=== PATIENT | female | born 1935 | race Caucasian/White ===

== ENCOUNTER 2019-05-14 19:56 | Inpatient (IN) | payer MEDICARE, MEDICAID ==
[~2019-05-14] VITALS: Ht 154.9 cm; Wt 55.6 kg
[~2019-05-14 19:56] MED LIST: CARV3.122; FOLI1TAB16 PO; NEPHC PO; SEVE800T8 PO
[2019-05-14] MEDS ORDERED: CRAN1POW2 (20:20)
[2019-05-14] MEDS ORDERED: DOCU100C41 PO (20:20)
[2019-05-14] MEDS ORDERED: AMLO-94 PO (20:20)
[2019-05-14] MEDS ORDERED: ATR0.5NEB IH (20:20)
[2019-05-14] MEDS ORDERED: OMEP40CA13 PO (20:20)
[2019-05-14] MEDS ORDERED: HYDR-4070 PO (20:20)
[2019-05-14] MEDS ORDERED: LINA290C PO (20:20)
[2019-05-14] MEDS ORDERED: AMOX-102 (20:20)
[2019-05-14] MEDS ORDERED: CARV6.253 PO (20:20)
[2019-05-14] MEDS ORDERED: MINO2.5T19 PO (20:20)
[2019-05-14] MEDS ORDERED: ACET-2119 PO (20:20)
[2019-05-14] MEDS ORDERED: NITR0.4T51 SL (20:20)
[2019-05-14] MEDS ORDERED: HYDR-3965 PO (20:20)
[2019-05-14] MEDS ORDERED: labetalol 20mg/4ml (5mg/ml) syringe IV ONE (20:50)
[2019-05-14 20:52] LABS: CLARITY,URINE CLEAR (Clear); COLOR,URINE YELLOW (Yellow); GLUCOSE, URINE 100 mg/dl (Neg); KETONES,URINE NEGATIVE (Neg); LEUKOCYTE ESTERASE ,URINE NEGATIVE (Neg); NITRITES, URINE NEGATIVE (Neg); OCCULT BLOOD,URINE LARGE (Neg); PROTEIN,URINE >=300 mg/dl (Neg); UROBILINOGEN,URINE 0.2 E.U/dL (0.2-1.0)
[2019-05-14 20:53] LABS: UA COLLECTION TYPE STRAIGHT CATH
[2019-05-14] MEDS ORDERED: hyDRALAzine 10mg tablet PO ONE (20:55)
--- NOTE | 2019-05-14 20:57 | NUR ---
PT KORIN FERNANDEZ CALLED TO GIVE UPDATED CONTACT INFORMATION PHONE NUMBER HOME: [phone] CELL: [phone]
[2019-05-14 21:00] LABS: RBC,URINE 0-2 /HPF (0-2); SQUAMOUS EPITHELIAL CELL,UR FEW /LPF (FEW); WBC,URINE 0-4 /HPF (0-4)
[2019-05-14 21:03] LABS: BACTERIA,URINE 3+ /HPF (Neg); MUCUS STRANDS MODERATE /LPF (Neg)
[2019-05-14 21:19] LABS: BASOPHILS % (AUTO) 0.6 % (0-1); EOSINOPHILS # (AUTO) 0.2 X10'3 (0-0.9); EOSINOPHILS % (AUTO) 2.5 % (0-6); LYMPHOCYTES % (AUTO) 13.7 % (21-51); MEAN PLATELET VOLUME 9.1 FL (7.4-10.4); MONOCYTES # (AUTO) 0.6 X10'3 (0-0.9); MONOCYTES % (AUTO) 8.1 % (2-12); NEUTROPHILS # (AUTO) 5.3 X10'3 (1.8-7.7); NEUTROPHILS % (AUTO) 75.1 % (42-75); PLATELET COUNT 115 X10'3 (140-440)
--- NOTE | 2019-05-14 21:50 | NUR ---
given antihypertensive rx 50 min ago, bp now 197/106. pt denies any pain but reprots she is nauseaus.
--- NOTE | 2019-05-14 21:53 | NUR ---
DR BARNES UPDATED OF NAUSEA, HE WILL ORDER ZOFRAN.
[2019-05-14] MEDS ORDERED: ondansetron/PF 4mg/2ml inj IV ONE (21:55)
[2019-05-14 22:01] LABS: BLOOD UREA NITROGEN 19 MG/DL (7-18); GLUCOSE 77 MG/DL (70-104); TOTAL CARBON DIOXIDE 27.5 MMOL/L (24-32)
[2019-05-14 22:02] LABS: ALANINE AMINOTRANSFERASE 128 U/L (12-78); ALBUMIN 2.4 G/DL (3.4-5.0); ALBUMIN/GLOBULIN RATIO 0.6 (1.1-1.5); ASPARTATE AMINO TRANSFERASE 387 U/L (10-37); BILIRUBIN,TOTAL 1.7 MG/DL (0.1-1.0); BUN/CREATININE RATIO 5.9 (6.6-38.0); CALCIUM 9.1 MG/DL (8.5-10.1); TOTAL PROTEIN 6.6 G/DL (6.4-8.2); eGFR 14 ML/MIN
[2019-05-14 22:03] LABS: ALKALINE PHOSPHATASE 124 IU/L (46-116)
[2019-05-14 22:08] LABS: PARTIAL THROMBOPLASTIN TIME 30 SECONDS (22-32)
[2019-05-14 22:10] LABS: ANION GAP 8 (8-16)
[2019-05-14 22:14] LABS: HEMOGLOBIN 9.3 g/dl (12.0-16.0); MEAN CORPUSCULAR HGB CONC 32.8 g/dL (33.0-36.5); RED CELL DISTRIBUTION WIDTH 17.5 % (11.5-14.5)
[2019-05-14 22:15] LABS: HEMATOCRIT 28.2 % (35.0-45.0); MEAN CORPUSCULAR HEMOGLOBIN 30.6 PG (27.0-31.0); MEAN CORPUSCULAR VOLUME 93.2 FL (78-98); RED BLOOD COUNT 3.02 X10'6 (4.20-5.60)
[2019-05-14] MEDS ORDERED: LABETALOL IV PRN (23:45)
[2019-05-14] MEDS ORDERED: acetaminophen 325mg tablet PO PRN ×2 (23:50)
[2019-05-14] MEDS ORDERED: ipratropium/albuterol 3ml nebule NEB PRN (23:50)
[2019-05-14] MEDS ORDERED: ondansetron/PF 4mg/2ml inj IV PRN (23:50)
[2019-05-14] MEDS ORDERED: HYDROcodone/acetaminophen 5mg/325mg tablet PO PRN (23:50)
[2019-05-15] VITALS (15 sets, daily range): BP systolic 96–191; BP diastolic 37–95
[2019-05-15] MEDS ORDERED: minoxidil 2.5mg tablet PO ONE (00:05)
[2019-05-15] MEDS: hydrALAZINE 25 MG tablet PO SCH ×4 (00:17→23:55)
[2019-05-15] MEDS ORDERED: LOSA50TA3 PO (00:20)
[2019-05-15] MEDS ORDERED: CEPH-571 PO (00:20)
[2019-05-15] MEDS ORDERED: CARV25TA PO (00:20)
--- NOTE | 2019-05-15 00:20 | NUR ---
PT CONTINUES TO BE CONFUSED. REGISTRATION WAS IN TO SEE THE PATIENT, SHE DOESN'T KNOW HER PHONE NUMBER.
[2019-05-15] MEDS: labetalol inj. 200 MG in normal saline 250ml IV soln 210 ML IV SCH ×2 (01:10→04:21)
[2019-05-15] MEDS ORDERED: niCARDipine-NS 40mg/200ml IVPB 200 ML IV PRN (04:16)
[2019-05-15 04:40] LABS: BASOPHILS # (AUTO) 0.1 X10'3 (0-0.2); EOSINOPHILS # (AUTO) 0.1 X10'3 (0-0.9); EOSINOPHILS % (AUTO) 2.5 % (0-6); HEMATOCRIT 28.1 % (35.0-45.0); HEMOGLOBIN 9.9 g/dl (12.0-16.0); LYMPHOCYTES # (AUTO) 1.1 X10'3 (1.1-4.8); LYMPHOCYTES % (AUTO) 18.7 % (21-51); MEAN CORPUSCULAR HEMOGLOBIN 32.9 PG (27.0-31.0); MEAN CORPUSCULAR HGB CONC 35.4 g/dL (33.0-36.5); MEAN PLATELET VOLUME 9.4 FL (7.4-10.4); MONOCYTES # (AUTO) 0.7 X10'3 (0-0.9); MONOCYTES % (AUTO) 11.9 % (2-12); NEUTROPHILS # (AUTO) 3.9 X10'3 (1.8-7.7); NEUTROPHILS % (AUTO) 65.9 % (42-75); PLATELET COUNT 115 X10'3 (140-440); RED BLOOD COUNT 3.02 X10'6 (4.20-5.60); RED CELL DISTRIBUTION WIDTH 17.5 % (11.5-14.5); WHITE BLOOD COUNT 5.9 X10'3 (4.5-11.0)
[2019-05-15 05:03] LABS: ALBUMIN 2.6 G/DL (3.4-5.0); BILIRUBIN,TOTAL 2.1 MG/DL (0.1-1.0); BLOOD UREA NITROGEN 25 MG/DL (7-18); BUN/CREATININE RATIO 6.7 (6.6-38.0); CALCIUM 8.5 MG/DL (8.5-10.1); CREATININE 3.74 MG/DL (0.40-0.90); eGFR 12 ML/MIN
[2019-05-15 05:21] LABS: ALANINE AMINOTRANSFERASE 364 U/L (12-78); ALBUMIN/GLOBULIN RATIO 0.7 (1.1-1.5); ALKALINE PHOSPHATASE 159 IU/L (46-116); ANION GAP 18 (8-16); ASPARTATE AMINO TRANSFERASE 931 U/L (10-37); CHLORIDE 101 MMOL/L (99-107); GLUCOSE 141 MG/DL (70-104); PHOSPHORUS 3.1 MG/DL (2.3-4.5); POTASSIUM 3.5 MMOL/L (3.5-5.1); SODIUM 146 MMOL/L (135-145); TOTAL CARBON DIOXIDE 26.7 MMOL/L (24-32); TOTAL PROTEIN 6.5 G/DL (6.4-8.2)
[2019-05-15 05:23] LABS: SODIUM 140 MMOL/L (135-145)
[2019-05-15 05:24] LABS: CHLORIDE 105 MMOL/L (99-107); POTASSIUM 3.3 MMOL/L (3.5-5.1)
--- NOTE | 2019-05-15 06:16 | NUR ---
Problems reprioritized. Patient report given, questions answered & plan of care reviewed with Janey HERRERA.
--- NOTE | 2019-05-15 06:34 | NUR ---
Patient in room CICU 2013. I have received report from Elif HERRERA and had the opportunity to ask questions and assume patient care.
[2019-05-15] MEDS: carvedilol 6.25mg tablet PO SCH ×2 (08:00→21:50)
[2019-05-15] MEDS ORDERED: lisinopril 20mg tablet PO SCH (08:00)
[2019-05-15] MEDS ORDERED: minoxidil 2.5mg tablet PO SCH (08:00)
[2019-05-15] MEDS: sevelamer carbonate 800mg tablet PO SCH ×3 (08:34→21:51)
[2019-05-15] MEDS: pantoprazole 40mg Tablet.DR PO SCH (08:34)
[2019-05-15] MEDS: amLODIPine 5mg tablet PO SCH (08:35)
--- NOTE | 2019-05-15 09:09 | NUR ---
patient took all her medications this am with applesauce without any swallowing issues, while I was at the bedside talking with her she told me "I dont feel well" and she then stopped responding to questions while looking stra Addendum: 05/15/19 at 0913 by Janey Welch RN straight ahead, patient then went asytolic on the monitor but, was still breathing and i could feel a faint pulse on the left radial. I called for help and the crash cart and she then threw up all over the front of her gown and then regained a pulse on the monitor along with a stronger pulse on the right radial. Patient stated she felt better after throwing up and we believe she may have vageled down when trying to vomit. All BP meds were expelled when she vomited. MD aware of events and also came to the bedside. Patient currently off cardene drip since 700am and BP is currently 144/65
--- NOTE | 2019-05-15 09:13 | NUR ---
zofran given per md order for nausea
--- NOTE | 2019-05-15 09:15 | NUR ---
BP is 116/54 HR 55 off cardene drip
[2019-05-15] MEDS: losartan 25mg tablet PO SCH ×2 (10:07→21:49)
[2019-05-15] MEDS: vitamin B comp w/Vit. C tab 1 TAB TABLET PO SCH (10:08)
[2019-05-15] MEDS ORDERED: AMOX500C2 PO (11:37)
[2019-05-15] MEDS ORDERED: IPRA3AMP31 IH (11:37)
[2019-05-15] MEDS ORDERED: AMLO10TA13 PO (11:37)
--- NOTE | 2019-05-15 12:23 | NUR ---
Problems reprioritized. Patient report given, questions answered & plan of care reviewed with Magi HERRERA.
--- NOTE | 2019-05-15 12:45 | NUR ---
called the son to make him aware that this patient will be transferring to room 1680T
--- NOTE | 2019-05-15 12:55 | NUR ---
Patient arrived to the unit accompanied by ICU personnel, safely transferred to the [facility]. Vital signs obtained, telemetry monitoring continued, 2 RN skin check complete, patient belongings placed at the bedside including wheelchair, patient oriented to room and call light, and bed alarm engaged. Will continue to monitor.
--- NOTE | 2019-05-15 13:03 | NUR ---
patient transferred to room 3014B with all belongings
[2019-05-15] MEDS: ipratropium 0.5 MG/2.5ML nebule IH SCH ×2 (13:33→19:53)
--- NOTE | 2019-05-15 17:48 | NUR ---
Orientee documentation: I have reviewed and agree with all interventions, assessments performed and documented by Magi HERRERA. Orientee Medication Administration: For this medication-pass time frame, all medication were reviewed, dispensed, administered and documented per hospital policy by Magi HERRERA.
--- NOTE | 2019-05-15 18:15 | NUR ---
Patient in room PCU 3014. I have received report from SHARON Sow and had the opportunity to ask questions and assume patient care.
--- NOTE | 2019-05-15 18:29 | NUR ---
Problems reprioritized. Patient report given, questions answered & plan of care reviewed with Candy RN & Mela RN.
--- NOTE | 2019-05-15 18:30 | NUR ---
Patient in room PCU 3014. I have received report from SHARON Gross and SHARON Yañez and had the opportunity to ask questions and assume patient care.
[2019-05-15] MEDS ORDERED: losartan 25mg tablet PO SCH (20:00)
[2019-05-15] MEDS: docusate sod 100mg capsule PO SCH (21:50)
[2019-05-15] MEDS: cephalexin 500mg capsule PO SCH (21:50)
[2019-05-16] MEDS: ipratropium 0.5 MG/2.5ML nebule IH SCH ×3 (02:00→15:18)
[2019-05-16 03:00] VITALS: BP 110/44
--- NOTE | 2019-05-16 03:53 | NUR ---
Orienteer documentation: I have reviewed and agree with interventions, assessments performed and documented by SHARON Plaza. Orienteer Medication Administration: For this medication-pass time frame, medication were reviewed, dispensed, administered and documented per hospital policy by SHARON Plaza.
[2019-05-16 05:53] LABS: BASOPHILS # (AUTO) 0.1 X10'3 (0-0.2); BASOPHILS % (AUTO) 1.1 % (0-1); EOSINOPHILS # (AUTO) 0.4 X10'3 (0-0.9); EOSINOPHILS % (AUTO) 4.5 % (0-6); HEMATOCRIT 28.5 % (35.0-45.0); HEMOGLOBIN 9.8 g/dl (12.0-16.0); LYMPHOCYTES # (AUTO) 1.1 X10'3 (1.1-4.8); LYMPHOCYTES % (AUTO) 14.4 % (21-51); MEAN CORPUSCULAR HEMOGLOBIN 31.6 PG (27.0-31.0); MEAN CORPUSCULAR HGB CONC 34.4 g/dL (33.0-36.5); MEAN CORPUSCULAR VOLUME 91.7 FL (78-98); MEAN PLATELET VOLUME 9.9 FL (7.4-10.4); MONOCYTES # (AUTO) 0.9 X10'3 (0-0.9); MONOCYTES % (AUTO) 11.1 % (2-12); NEUTROPHILS # (AUTO) 5.4 X10'3 (1.8-7.7); NEUTROPHILS % (AUTO) 68.9 % (42-75); PLATELET COUNT 114 X10'3 (140-440); RED CELL DISTRIBUTION WIDTH 18.2 % (11.5-14.5); WHITE BLOOD COUNT 7.8 X10'3 (4.5-11.0)
[2019-05-16 06:00] VITALS: BP 100/48
--- NOTE | 2019-05-16 06:00 | NUR ---
Patient in room PCU 3014. I have received report from SHARON Alarcon and had the opportunity to ask questions and assume patient care.
--- NOTE | 2019-05-16 06:26 | NUR ---
Problems reprioritized. Patient report given, questions answered & plan of care reviewed with SHARON Cheng.
[2019-05-16 06:27] LABS: ALANINE AMINOTRANSFERASE 290 U/L (12-78); ALBUMIN 2.8 G/DL (3.4-5.0); ALBUMIN/GLOBULIN RATIO 0.8 (1.1-1.5); ALKALINE PHOSPHATASE 142 IU/L (46-116); BILIRUBIN,TOTAL 1.3 MG/DL (0.1-1.0); BLOOD UREA NITROGEN 45 MG/DL (7-18); BUN/CREATININE RATIO 8.6 (6.6-38.0); CALCIUM 9.9 MG/DL (8.5-10.1); CHLORIDE 106 MMOL/L (99-107); CREATININE 5.21 MG/DL (0.40-0.90); GLUCOSE 104 MG/DL (70-104); MAGNESIUM 2.4 MG/DL (1.5-2.4); TOTAL CARBON DIOXIDE 23.5 MMOL/L (24-32); TOTAL PROTEIN 6.1 G/DL (6.4-8.2); eGFR 8 ML/MIN
[2019-05-16 06:35] LABS: HEMOGLOBIN A1C 5.3 % (4.5-6.2)
[2019-05-16 06:42] LABS: ANION GAP 10 (8-16); SODIUM 139 MMOL/L (135-145)
[2019-05-16 07:04] LABS: POTASSIUM 3.9 MMOL/L (3.5-5.1)
[2019-05-16 07:05] LABS: ASPARTATE AMINO TRANSFERASE 633 U/L (10-37); PHOSPHORUS 3.6 MG/DL (2.3-4.5)
[2019-05-16] MEDS: cephalexin 500mg capsule PO SCH (07:40)
[2019-05-16] MEDS: docusate sod 100mg capsule PO SCH (07:40)
[2019-05-16] MEDS: carvedilol 6.25mg tablet PO SCH (07:40)
[2019-05-16] MEDS: pantoprazole 40mg Tablet.DR PO SCH (07:40)
[2019-05-16] MEDS: vitamin B comp w/Vit. C tab 1 TAB TABLET PO SCH (07:40)
[2019-05-16] MEDS ORDERED: heparin 1,000unit/ml 10ml vial 10 ML IV ONE (08:00)
[2019-05-16] MEDS: amLODIPine 5mg tablet PO SCH (08:00)
[2019-05-16] MEDS: hydrALAZINE 25 MG tablet PO SCH (08:00)
[2019-05-16] MEDS ORDERED: non-formulary drug (Omeprazole (Prilosec) 1 CAP) PO SCH (08:00)
[2019-05-16] MEDS: losartan 25mg tablet PO SCH (08:00)
[2019-05-16] MEDS ORDERED: normal saline 1000ml 250 ML IV PRN (08:00)
[2019-05-16] MEDS ORDERED: epoetin 20,000 units/ml inj IV ONE (08:00)
[2019-05-16] MEDS ORDERED: heparin 1,000 units/ml 10ml inj HE ONE ×2 (08:00)
[2019-05-16] MEDS: sevelamer carbonate 800mg tablet PO SCH ×2 (08:00→13:00)
[2019-05-16 11:00] VITALS: BP 110/59
[2019-05-16] MEDS ORDERED: LOSA25TA41 PO (13:51)
[2019-05-16] MEDS ORDERED: NOR5T PO (13:51)
[2019-05-16 15:00] VITALS: BP 140/55
--- NOTE | 2019-05-16 17:32 | NUR ---
Pt was discharged to Home. [employer] is transporting to home with one attendant. She was dressed in her clothes, all belongings were gathered and sent in her duffle bag. The discharge packet was put in bag for her son. Explained that she has 2 new rx to fill. Pt has dementia and unable to sign paper. Including hearing aids in blue tub.
--- NOTE | 2019-05-16 19:10 | NUR ---
called son Thomas to notify him of discharge and no answer
[2019-05-16] MEDS ORDERED: lactobacillus rhamnosus 10,000 MMU CELLS/CAPSULE PO SCH (20:00)
--- NOTE | 2019-05-17 14:39 | NUR ---
I WAS CALLED BY PT SON. HE WAS DEMANDING TO KNOW WHAT MEDICATIONS FOR BP "WE" GAVE HER YESTERDAY. HE YELLED THAT HIS MOTHERS SBP WAS 70 WHEN HE TOOK IT AFTER PT WAS DELIVERED HOME YESTERDAY. HE YELLED THAT HIS MOTHER WAS WEAK AND SLEEPING WITH LOW BP ALL DAY. HE DEMANDED TO KNOW WHY WE SENT HER HOME THAT WAY. I INFORMED HIM THAT HER PT RECORD STATED THAT HER SBP WAS 140 WHEN SHE LEFT. I INFORMED HM THAT THEY SHOULD TAKE HER MOM BACK TO THE ER . I STATED THAT I CLARIFIED THE NEW RX THIS EARLY AFTERNOON WITH THE PHARMACY .THAT THAT MEANT TO ME THAT SHE HASN'T RECEIVED HER NEW RX TODAY. HE YELLED THAT NO ONE TOLD HIM ABOUT ANY NEW PRESCRIPTIONS. AFTER HE HUNG UP ON ME , I ASKED THE D/C RN PREET ABOUT THAT. PREET STATED THAT SHE DID IN FACT TALK TO SON REGARDING THE NEW RT. THAT THAT IS WHY SHE CALLED THEM OVER TO [facility]. I ATTEMPTED TO CALL SON BACK AND THE NUMBER PROVIDED IN SBAR WAS OUT OF SERVICE.
== END 2019-05-16 17:19 | disposition home health service (06) | DRG 304 ==
LOC: ER 19:57 → CICU 2S 05-15 00:27 → CMPBEDREQ 05-15 00:32 → PCU 3S 05-15 12:55
PROVIDERS: ATTEND Internal Medicine Critical Care Medicine
PROC: 5A1D70Z Performance of Urinary Filtration, Intermittent, Less than 6 Hours Per Day (ICD-10-PCS; principal; 2019-05-16)
DX: I16.9 Hypertensive crisis, unspecified (principal); N18.6 End stage renal disease; I46.9 Cardiac arrest, cause unspecified; R17 Unspecified jaundice; N39.0 Urinary tract infection, site not specified; E11.22 Type 2 diabetes mellitus with diabetic chronic kidney disease; R00.1 Bradycardia, unspecified; I12.0 Hypertensive chronic kidney disease with stage 5 chronic kidney disease or end stage renal disease; K21.9 Gastro-esophageal reflux disease without esophagitis; Z83.3 Family history of diabetes mellitus; Z99.2 Dependence on renal dialysis; Z87.440 Personal history of urinary (tract) infections; Z88.8 Allergy status to other drugs, medicaments and biological substances; Z91.013 Allergy to seafood; Z82.49 Family history of ischemic heart disease and other diseases of the circulatory system; Z79.899 Other long term (current) drug therapy
CPT/HCPCS: 36415; 71045; 80053; 81001; 83036; 83605; 83735; 84100; 84484; 85025; 85610; 85730; 87040; 87081; 93005; 94640; 94760; 96374; 96375; 99285; G0257; G0378; J1644; J2405; J3490; J7050; Q4081

== ENCOUNTER 2019-09-08 12:16 | Emergency (ER) | payer MEDICARE, MEDICAID ==
[~2019-09-08] VITALS: Ht 157.5 cm; Wt 50.0 kg
[~2019-09-08 12:16] MED LIST changes: +AMOX-580 PO; +ATR0.5NEB IH; -CARV3.122; +CARV6.253 PO; -FOLI1TAB16 PO; +IPRA3AMP31 IH; +LOSA25TA41 PO; -NEPHC PO
[2019-09-08] MEDS ORDERED: normal saline 1000ml 1,000 ML IV ONE (12:37)
[2019-09-08 12:52] LABS: EOSINOPHILS % (AUTO) 0 % (0-6); HEMOGLOBIN 12.8 g/dl (12.0-16.0); RED BLOOD COUNT 4.06 X10'6 (4.20-5.60)
[2019-09-08 12:54] LABS: BASOPHILS # (AUTO) 0.1 X10'3 (0-0.2); BASOPHILS % (AUTO) 1.2 % (0-1); HEMATOCRIT 38.2 % (35.0-45.0); LYMPHOCYTES # (AUTO) 0.7 X10'3 (1.1-4.8); LYMPHOCYTES % (AUTO) 9.6 % (21-51); MEAN CORPUSCULAR HEMOGLOBIN 31.5 PG (27.0-31.0); MEAN CORPUSCULAR HGB CONC 33.5 g/dL (33.0-36.5); MEAN CORPUSCULAR VOLUME 94.1 FL (78-98); MEAN PLATELET VOLUME 10.8 FL (7.4-10.4); MONOCYTES # (AUTO) 0.3 X10'3 (0-0.9); MONOCYTES % (AUTO) 3.6 % (2-12); NEUTROPHILS # (AUTO) 6.1 X10'3 (1.8-7.7); NEUTROPHILS % (AUTO) 85.6 % (42-75); PLATELET COUNT 134 X10'3 (140-440); WHITE BLOOD COUNT 7.1 X10'3 (4.5-11.0)
[2019-09-08 13:10] LABS: PARTIAL THROMBOPLASTIN TIME 26 SECONDS (22-32)
[2019-09-08 13:16] LABS: ALANINE AMINOTRANSFERASE 13 U/L (12-78); ALBUMIN 3.7 G/DL (3.4-5.0); ALKALINE PHOSPHATASE 60 IU/L (46-116); ANION GAP 12 (8-16); ASPARTATE AMINO TRANSFERASE 14 U/L (10-37); BILIRUBIN,TOTAL 0.6 MG/DL (0.1-1.0); BLOOD UREA NITROGEN 17 MG/DL (7-18); BUN/CREATININE RATIO 4.3 (6.6-38.0); CALCIUM 9.9 MG/DL (8.5-10.1); CHLORIDE 101 MMOL/L (99-107); CREATININE 3.91 MG/DL (0.40-0.90); GLUCOSE 153 MG/DL (70-104); POTASSIUM 4.9 MMOL/L (3.5-5.1); SODIUM 142 MMOL/L (135-145); TOTAL CARBON DIOXIDE 28.6 MMOL/L (24-32); TOTAL PROTEIN 7.3 G/DL (6.4-8.2); eGFR 11 ML/MIN
[2019-09-08] MEDS ORDERED: metoclopramide 5 mg/ml inj IV ONE (13:20)
--- NOTE | 2019-09-08 14:25 | NUR ---
Patient's son called to check on patient. Son's home phone [phone], cell phone [phone]
--- NOTE | 2019-09-08 15:40 | NUR ---
REC'D CALL FROM DR ALFORD. PATIENT IN ER BED 8 WAS JUST DISCHARGED TO HOME YESTERDAY. REQUESTS SNF FOR PATIENT. PATIENT LIVES WITH SON, BAKARI. ATTEMPTED TO CONTACT BAKARI AT HOME PHONE AND WAS UNABLE TO LEAVE A VM. LEFT VM ON CELL PHONE ASKING FOR CALL BACK. PATIENT REFERRED TO ALL DURING PREVIOUS VISIT AND DECLINED BY [facility]. CALLED AND SPOKE WITH MARILIN AT [facility]. THEY DO NOT HAVE ANY NON ISO FEMALE BEDS THIS WEEKEND IN LTAC OR TCU. [facility] AWAITING REPLY AT THIS TIME.
--- NOTE | 2019-09-08 16:30 | NUR ---
Rec'd call from case management, able to place Pt. in SNF tomorrow, unable to place patient today.
--- NOTE | 2019-09-08 16:34 | NUR ---
SPOKE DAYNE MEYER FROM [facility] AND HE WILL NOT BE ABLE TO ACCEPT TODAY. HE WILL EVAL AND GET BACK TO TOMORROW.
--- NOTE | 2019-09-08 16:35 | NUR ---
PETRA FROM [facility] HAS ACCPETED BUT WILL ONLY BE ABLE TO ACCEPT TOMORROW. CALLED AND NOTIFIED DR ALFORD. CALLED AND NOTIFIED KAMERON HERRERA AND HE WILL NOTIFY ONCBETTY MANN. CALLED AND SPOKE WITH KORIN VILLEGAS AND HE IS IN AGREEMENT.
--- NOTE | 2019-09-08 16:37 | NUR ---
SPOKE WITH SONBAKARI AGAIN. PATIENT IS DCI PATIENT WITH 1545 ARRIVAL TIME AND 1600 CHAIR TIME ON M,W,F. [employer] TRANSPORTS PATIENT. WILL NOTIFY [facility]. PATIENT IS ALSO OPEN WITH [facility].
[2019-09-08] MEDS ORDERED: acetaminophen 325mg tablet PO PRN (16:40)
[2019-09-08] MEDS ORDERED: proCHLORperazine 10 MG/2 ml inj IV PRN (16:40)
--- NOTE | 2019-09-08 17:08 | NUR ---
Obtained current medication list from Pt.'s son
[2019-09-08] MEDS ORDERED: LOSA100T57 PO (17:18)
--- NOTE | 2019-09-08 18:45 | NUR ---
Pt moved from bed 8 in main ER to bed 24 in Overflow. Pt denies discomfort at this time. Telemetry maintained in overflow due to pt having a telemetry order. She has been transfered to a hospital bed and repositioned. Fresh linen has been given as well.
--- NOTE | 2019-09-08 19:16 | NUR ---
Pt consumed 4 sips of her soup. She states that she is not hungry and has no desire to eat. She is not sleeping on her left side with visible respirations. No sign of pain or distress noted. Pt is in direct line of sight of nursing station. Telemetry is applied.
[2019-09-08] MEDS: docusate sod 100mg capsule PO SCH (20:00)
[2019-09-08] MEDS: heparin, porcine 5000 units/ml vial SQ SCH (20:01)
--- NOTE | 2019-09-08 20:08 | NUR ---
Pt pulled up in bed and repositioned to her right side with pillows supporting posture and floating bony prominances.
--- NOTE | 2019-09-08 22:10 | NUR ---
Pt pulled up in bed, repositioned, and turned onto her left side. Bony prominances were padded with pillows and her heels were floated. Pt was clean of incontinence at this time. She is sleeping comfortably, no sign of distress or pain noted.
--- NOTE | 2019-09-09 00:11 | NUR ---
Pt produced incontinent medium soft bowel movement that was cleaned up. She was then repositioned in bed and turned onto her right side. She denies pain or discomfort.
--- NOTE | 2019-09-09 02:13 | NUR ---
Pt pulled up in bed and repositioned onto her left side. Bony prominances were padded with pillows. Pt does not show sign of pain or discomfort, she is in eye sight of the nursing station.
--- NOTE | 2019-09-09 04:10 | NUR ---
Pulled pt up in bed and repositioned her onto her right side. Bony prominances were elevated with pillows and her heels were floated. She took two sips of water at this time. Pt denies pain or discomfort.
[2019-09-09 04:45] LABS: BASOPHILS # (AUTO) 0.1 X10'3 (0-0.2); BASOPHILS % (AUTO) 1.3 % (0-1); EOSINOPHILS % (AUTO) 0.5 % (0-6); HEMOGLOBIN 12.1 g/dl (12.0-16.0); LYMPHOCYTES # (AUTO) 1.2 X10'3 (1.1-4.8); LYMPHOCYTES % (AUTO) 16.7 % (21-51); MEAN CORPUSCULAR HEMOGLOBIN 31.7 PG (27.0-31.0); MEAN CORPUSCULAR HGB CONC 33.6 g/dL (33.0-36.5); MEAN CORPUSCULAR VOLUME 94.3 FL (78-98); MEAN PLATELET VOLUME 11.1 FL (7.4-10.4); MONOCYTES # (AUTO) 0.7 X10'3 (0-0.9); MONOCYTES % (AUTO) 9.9 % (2-12); NEUTROPHILS % (AUTO) 71.6 % (42-75); PLATELET COUNT 127 X10'3 (140-440); RED BLOOD COUNT 3.82 X10'6 (4.20-5.60); RED CELL DISTRIBUTION WIDTH 16.9 % (11.5-14.5); WHITE BLOOD COUNT 6.9 X10'3 (4.5-11.0)
[2019-09-09 04:47] VITALS: BP 146/116
[2019-09-09 04:56] LABS: ALANINE AMINOTRANSFERASE 11 U/L (12-78); ALBUMIN 3.4 G/DL (3.4-5.0); ALKALINE PHOSPHATASE 52 IU/L (46-116); ANION GAP 10 (8-16); ASPARTATE AMINO TRANSFERASE 15 U/L (10-37); BILIRUBIN,TOTAL 0.5 MG/DL (0.1-1.0); BLOOD UREA NITROGEN 27 MG/DL (7-18); BUN/CREATININE RATIO 5.5 (6.6-38.0); CALCIUM 9.8 MG/DL (8.5-10.1); CHLORIDE 103 MMOL/L (99-107); CREATININE 4.88 MG/DL (0.40-0.90); GLUCOSE 113 MG/DL (70-104); MAGNESIUM 2.1 MG/DL (1.5-2.4); PHOSPHORUS 5.1 MG/DL (2.3-4.5); POTASSIUM 5.1 MMOL/L (3.5-5.1); SODIUM 141 MMOL/L (135-145); TOTAL PROTEIN 6.8 G/DL (6.4-8.2); eGFR 9 ML/MIN
[2019-09-09 05:16] LABS: LARGE PLATELETS FEW; PLATELET ESTIMATE DECREASED
--- NOTE | 2019-09-09 06:03 | NUR ---
Pt pulled up in bed and repositioned onto her left side. She does not show signs of pain or discomfort at this time. She is in direct line of sight of the nursing station.
[2019-09-09] MEDS: heparin, porcine 5000 units/ml vial SQ SCH (08:16)
[2019-09-09] MEDS: docusate sod 100mg capsule PO SCH (08:18)
--- NOTE | 2019-09-09 08:30 | NUR ---
PT IS SITTING UPRIGHT IN BED AT THIS TIME EATING BREAKFAST. PT IS ABLE TO FEED SELF INDEPENDENTLY. RESPIRATIONS ARE EVEN AND UNLABORED. NO S/S OF PAIN OR DISCOMFORT.
--- NOTE | 2019-09-09 10:40 | NUR ---
PT REPOSITIONED ONTO RIGHT SIDE WITH PILLOWS UNDER HIPS AND BETWEEN LEGS FOR SUPPORT. PT IS IN DIRECT LINE OF SIGHT OF THE NURSING STATION AND HAS VISIBLE RESPIRATIONS. WILL CONTINUE TO MONITOR.
--- NOTE | 2019-09-09 10:52 | NUR ---
report called to alyse
== END 2019-09-09 14:02 ==
LOC: ER 12:17
DX: I12.0 Hypertensive chronic kidney disease with stage 5 chronic kidney disease or end stage renal disease (principal); E11.22 Type 2 diabetes mellitus with diabetic chronic kidney disease; N18.6 End stage renal disease; R11.2 Nausea with vomiting, unspecified; K21.9 Gastro-esophageal reflux disease without esophagitis; Z99.2 Dependence on renal dialysis; Z88.8 Allergy status to other drugs, medicaments and biological substances; Z79.899 Other long term (current) drug therapy
CPT/HCPCS: 36415; 71045; 80053; 83735; 84100; 85025; 85610; 85730; 93005; 96361; 96372; 96374; 99285; J1644; J2765; J7030

== ENCOUNTER 2020-01-31 12:34 | Emergency (ER) | payer MEDICARE, MEDICAID ==
[~2020-01-31] VITALS: Ht 154.9 cm; Wt 51.0 kg
[~2020-01-31 12:34] MED LIST changes: -AMOX-580 PO; -ATR0.5NEB IH; -IPRA3AMP31 IH; +LOSA100T57 PO; -LOSA25TA41 PO
[2020-01-31 14:27] LABS: BASOPHILS % (AUTO) 0.7 % (0-1); EOSINOPHILS # (AUTO) 0.1 X10'3 (0-0.9); HEMATOCRIT 33.4 % (35.0-45.0); HEMOGLOBIN 10.9 g/dl (12.0-16.0); LYMPHOCYTES # (AUTO) 0.8 X10'3 (1.1-4.8); LYMPHOCYTES % (AUTO) 11.4 % (21-51); MEAN CORPUSCULAR HEMOGLOBIN 31.3 PG (27.0-31.0); MEAN CORPUSCULAR HGB CONC 32.6 g/dL (33.0-36.5); MEAN PLATELET VOLUME 10.7 FL (7.4-10.4); MONOCYTES # (AUTO) 0.5 X10'3 (0-0.9); MONOCYTES % (AUTO) 6.9 % (2-12); NEUTROPHILS # (AUTO) 5.6 X10'3 (1.8-7.7); PLATELET COUNT 118 X10'3 (140-440); RED BLOOD COUNT 3.48 X10'6 (4.20-5.60); RED CELL DISTRIBUTION WIDTH 16.7 % (11.5-14.5); WHITE BLOOD COUNT 7.1 X10'3 (4.5-11.0)
[2020-01-31 14:32] LABS: PARTIAL THROMBOPLASTIN TIME 27 SECONDS (22-32)
[2020-01-31 14:34] LABS: ALANINE AMINOTRANSFERASE 28 U/L (12-78); ALBUMIN 2.5 G/DL (3.4-5.0); ALBUMIN/GLOBULIN RATIO 0.7 (1.1-1.5); ALKALINE PHOSPHATASE 79 IU/L (46-116); ANION GAP 8 (8-16); ASPARTATE AMINO TRANSFERASE 26 U/L (10-37); BILIRUBIN,TOTAL 0.4 MG/DL (0.1-1.0); BLOOD UREA NITROGEN 27 MG/DL (7-18); BUN/CREATININE RATIO 5.9 (6.6-38.0); CALCIUM 8.8 MG/DL (8.5-10.1); CHLORIDE 108 MMOL/L (99-107); CREATININE 4.59 MG/DL (0.40-0.90); GLUCOSE 96 MG/DL (70-104); POTASSIUM 4.1 MMOL/L (3.5-5.1); SODIUM 145 MMOL/L (135-145); TOTAL CARBON DIOXIDE 28.9 MMOL/L (24-32); TOTAL PROTEIN 6.3 G/DL (6.4-8.2); eGFR 9 ML/MIN
[2020-01-31] MEDS ORDERED: pantoprazole 40mg Tablet.DR PO STA (14:41)
[2020-01-31] MEDS ORDERED: pantoprazole 40 MG vial IV ONE (15:20)
--- NOTE | 2020-01-31 15:33 | NUR ---
pt returns from [place]
--- NOTE | 2020-01-31 17:06 | NUR ---
fish and wildlife technician is collecting repeat troponin levels at this time.
[2020-01-31] MEDS ORDERED: docusate sod 100mg capsule PO ONE (17:10)
--- NOTE | 2020-01-31 17:35 | NUR ---
pt states shes not sure if she wants an enema. stated she wants to think about it. will continue to monitor.
[2020-01-31] MEDS ORDERED: HYDR-4070 PO (17:42)
[2020-01-31] MEDS ORDERED: OLME20TA23 PO (17:42)
[2020-01-31] MEDS ORDERED: LEVO25TA7 PO (17:42)
[2020-01-31] MEDS ORDERED: TRAM50TA2 PO (17:42)
[2020-01-31] MEDS ORDERED: DIPH-522 PO (17:42)
--- NOTE | 2020-01-31 18:04 | NUR ---
SPOKE TO PT KORIN VILLEGAS OVER PHONE ABOUT DISCHARGE INSTRUCTIONS. VERBALIZED UNDERSTANDING. STATED WILL F/U WITH PMRama AND DR WILLIS DIRECTED. PT KORIN STATED WILL BE HOME AT 1900 TODAY AND CONFIRMED ADDRESS IN PATIENT DATA. WILL CONTINUE TO MONITOR UNTIL [employer] [facility] ARRIVES AT 1900. Addendum: 01/31/20 at 1806 by SEBASTIÁN NOTE BY MAGGI
--- NOTE | 2020-01-31 18:35 | NUR ---
Pt is awaiting [employer] for transport to home. Pt denies pain or other complaints.
--- NOTE | 2020-01-31 19:15 | NUR ---
Pt given a sandwich and some juice to eat prior to discharge.
[2020-01-31 19:31] VITALS: BP 184/82
== END 2020-01-31 19:30 | disposition home or self-care (01) ==
LOC: ER 12:35
DX: R11.2 Nausea with vomiting, unspecified (principal); I12.0 Hypertensive chronic kidney disease with stage 5 chronic kidney disease or end stage renal disease; E11.22 Type 2 diabetes mellitus with diabetic chronic kidney disease; N18.6 End stage renal disease; K21.9 Gastro-esophageal reflux disease without esophagitis; Z87.440 Personal history of urinary (tract) infections; Z88.8 Allergy status to other drugs, medicaments and biological substances; Z79.899 Other long term (current) drug therapy
CPT/HCPCS: 36415; 74176; 76700; 80053; 84484; 85025; 85610; 85730; 96374; 99285; C9113

== ENCOUNTER 2020-03-15 21:24 | Emergency (ER) | payer MEDICARE, MEDICAID ==
[~2020-03-15] VITALS: Ht 152.4 cm; Wt 50.2 kg
[~2020-03-15 21:24] MED LIST changes: +CEPH250C PO; +DIPH-522 PO; +LEVO25TA7 PO; -LOSA100T57 PO; +OLME20TA23 PO
[2020-03-15 22:06] LABS: ALANINE AMINOTRANSFERASE 12 U/L (12-78); ALBUMIN 2.9 G/DL (3.4-5.0); ALBUMIN/GLOBULIN RATIO 0.9 (1.1-1.5); ALKALINE PHOSPHATASE 50 IU/L (46-116); ANION GAP 6 (8-16); ASPARTATE AMINO TRANSFERASE 19 U/L (10-37); BILIRUBIN,TOTAL 0.3 MG/DL (0.1-1.0); BLOOD UREA NITROGEN 12 MG/DL (7-18); BUN/CREATININE RATIO 3.9 (6.6-38.0); CALCIUM 8.8 MG/DL (8.5-10.1); CHLORIDE 104 MMOL/L (99-107); GLUCOSE 127 MG/DL (70-104); POTASSIUM 3.8 MMOL/L (3.5-5.1); SODIUM 139 MMOL/L (135-145); TOTAL PROTEIN 6.3 G/DL (6.4-8.2); eGFR 14 ML/MIN
[2020-03-15 22:14] LABS: BASOPHILS # (AUTO) 0.1 X10'3 (0-0.2); EOSINOPHILS # (AUTO) 0.2 X10'3 (0-0.9); LYMPHOCYTES # (AUTO) 1.2 X10'3 (1.1-4.8); MONOCYTES # (AUTO) 0.5 X10'3 (0-0.9); MONOCYTES % (AUTO) 13.2 % (2-12)
[2020-03-15 22:14] LABS: CLARITY,URINE CLOUDY (Clear); COLOR,URINE YELLOW (Yellow); GLUCOSE, URINE NEGATIVE (Neg); KETONES,URINE NEGATIVE (Neg); LEUKOCYTE ESTERASE ,URINE MODERATE (Neg); NITRITES, URINE NEGATIVE (Neg); OCCULT BLOOD,URINE MODERATE (Neg); PH,URINE 7.5 (4.8-8.0); PROTEIN,URINE 100 mg/dl (Neg); UROBILINOGEN,URINE 0.2 E.U/dL (0.2-1.0)
[2020-03-15 22:15] LABS: UA COLLECTION TYPE STRAIGHT CATH
[2020-03-15 22:17] LABS: BASOPHILS % (AUTO) 2.4 % (0-1); EOSINOPHILS % (AUTO) 4.7 % (0-6); HEMATOCRIT 33.4 % (35.0-45.0); LYMPHOCYTES % (AUTO) 29.2 % (21-51); MEAN CORPUSCULAR HEMOGLOBIN 30.7 PG (27.0-31.0); MEAN CORPUSCULAR HGB CONC 32.8 g/dL (33.0-36.5); MEAN CORPUSCULAR VOLUME 93.6 FL (78-98); NEUTROPHILS % (AUTO) 50.5 % (42-75); PLATELET COUNT 111 X10'3 (140-440); RED BLOOD COUNT 3.57 X10'6 (4.20-5.60); RED CELL DISTRIBUTION WIDTH 16.5 % (11.5-14.5)
[2020-03-15 22:24] LABS: BACTERIA,URINE 2+ /HPF (Neg); MUCUS STRANDS NONE SEEN /LPF (Neg); SQUAMOUS EPITHELIAL CELL,UR MODERATE /LPF (FEW); WBC,URINE TNTC /HPF (0-4)
[2020-03-15 22:26] LABS: AMORPHOUS PHOSPHATES 2+
[2020-03-15 22:50] LABS: TOTAL CELLS COUNTED 100
[2020-03-15 22:52] LABS: ANISOCYTOSIS 1+; PLATELET ESTIMATE DECREASED
[2020-03-15] MEDS ORDERED: cephalexin 250mg capsule PO ONE (22:55)
[2020-03-15] MEDS ORDERED: CEPH250T PO (22:59)
[2020-03-15 23:00] VITALS: BP 195/90
== END 2020-03-16 00:02 | disposition home or self-care (01) ==
LOC: ER 21:25
DX: N39.0 Urinary tract infection, site not specified (principal); K21.9 Gastro-esophageal reflux disease without esophagitis; N18.9 Chronic kidney disease, unspecified; E11.22 Type 2 diabetes mellitus with diabetic chronic kidney disease; I12.9 Hypertensive chronic kidney disease with stage 1 through stage 4 chronic kidney disease, or unspecified chronic kidney disease; Z86.73 Personal history of transient ischemic attack (TIA), and cerebral infarction without residual deficits; Z88.8 Allergy status to other drugs, medicaments and biological substances; Z79.899 Other long term (current) drug therapy
CPT/HCPCS: 36415; 71045; 80053; 81001; 83605; 84145; 84484; 85025; 87040; 87088; 93005; 99285